=== PATIENT | male | born 1955 | race Caucasian/White ===

== ENCOUNTER 2020-10-30 18:53 | Emergency (ER) | payer MEDICARE ==
[2020-10-30 19:34] VITALS: TEMP 98.1
[2020-10-30 20:44] LABS: Basophils # (A) 0.1 k/uL (0-0.2); Basophils % (A) 1 %; Eosinophils # (A) 0.1 k/uL (0-0.7); Eosinophils % (A) 2 %; HGB 14.4 gm/dL (13.0-17.5); Lymphocytes # (A) 1.9 k/uL (1.0-4.8); Lymphocytes % (A) 27 %; MCH 29.5 pg (25.0-35.0); MCHC 33.5 g/dL (31.0-37.0); Mean Platelet Volume 6.1; Monocytes # (A) 0.3 k/uL (0-1.0); Monocytes % (A) 4 %; Neutrophils # (A) 4.4 k/uL (1.3-7.7); Neutrophils % (A) 64 %; Platelet Count 399 k/uL (150-450); RBC 4.89 m/uL (4.30-5.90); RDW 13.8 % (11.5-15.5); WBC 6.8 k/uL (3.8-10.6)
[2020-10-30 20:54] LABS: INR 0.9 (<1.2); Partial Thromboplastin Time 21.4 sec (22.0-30.0); Prothrombin Time 9.6 sec (9.0-12.0)
--- NOTE | 2020-10-30 21:00 | CT ---
EXAMINATION TYPE: CT brain wo con DATE OF EXAM: 10/30/2020 COMPARISON: None HISTORY: weakness, hx of cva CT DLP: 1080.4 mGycm Automated exposure control for dose reduction was used. There is cerebral atrophy. There is no mass effect nor midline shift. There is no sign of intracrania l hemorrhage. Calvarium is intact there is normal aeration of the mastoid sinuses. IMPRESSION: Cerebral atrophy. No acute intracranial abnormality
[2020-10-30] MEDS: SODIUM CHLORIDE 0.9% 1,000 ML IV STA (21:03)
[2020-10-30 21:05] LABS: ALT 31 U/L (4-49); AST 49 U/L (17-59); African American GFR (CKD) >90 (>60 ml/min/1.73 sqM); Albumin 4.6 g/dL (3.5-5.0); Alkaline Phosphatase 58 U/L (38-126); Anion Gap 11 mmol/L; Blood Urea Nitrogen 15 mg/dL (9-20); Calcium 9.4 mg/dL (8.4-10.2); Carbon Dioxide 24 mmol/L (22-30); Chloride 105 mmol/L (98-107); Glucose 114 mg/dL (74-99); Non-African American GFR(CKD) >90 (>60 ml/min/1.73 sqM); Sodium 140 mmol/L (137-145); Total Bilirubin 0.7 mg/dL (0.2-1.3); Total Protein 7.4 g/dL (6.3-8.2)
[2020-10-30 21:12] LABS: Potassium 5.2 mmol/L (3.5-5.1)
--- NOTE | 2020-10-30 21:17 | ED ---
General Adult HPI - General Chief complaint: Fall Stated complaint: fall Time Seen by Provider: 10/30/20 19:43 Source: patient Mode of arrival: ambulatory Limitations: no limitations - History of Present Illness Initial comments: 65 year-old male patient presents to the emergency department after having a fall. Patient states that he had a "mini stroke" in the past and feels like he is having one again. Patient states that he went to the bar, drank a pitcher of beer, and walked home. States on the walk home he started to feel weak and like he was going to fall. States he felt dizzy, but there was no spinning sensation. States he forced himself to continue the walk, but about a half a block from his house he could not control the falling sensation and fell forward. States that he crawled the rest of the way to the porch and asked for help from his neighbor. States he was able to ask for help and told the person to call 911. Patient denies hitting his head or losing consciousness. Denies any focal numbness or weakness. Denies any visual changes. Denies chest pain, shortness of breath, nausea, or vomiting. States with the previous TIA he was "paralyzed" for about 30-40 minutes. Patient denies any recent rash, fever, chills, cough, shortness of breath, chest pain, abdominal pain, nausea, vomiting, diarrhea, constipation, back pain, hematuria, dysuria, urinary urgency, urinary frequency, or any other complaints. Did have some scratches on his knees and hands. Tetanus is not up to date. - Related Data Home Medications Medication Instructions Recorded Confirmed Aspirin EC [Ecotrin Low Dose] 162 mg PO DAILY PRN 10/30/20 10/30/20 Metoprolol Succinate [Toprol XL] 25 mg PO DAILY 10/30/20 10/30/20 Rosuvastatin [Crestor] 20 mg PO HS 10/30/20 10/30/20 traZODone HCL [Desyrel] 50 mg PO HS PRN 10/30/20 10/30/20 Allergies Allergy/AdvReac Type Severity Reaction Status Date / Time cyclobenzaprine Allergy Confusion Verified 10/30/20 21:23 [From Flexeril] Review of Systems ROS Statement: Those systems with pertinent positive or pertinent negative responses have been documented in the HPI. ROS Other: All systems not noted in ROS Statement are negative. Past Medical History Past Medical History: Hypertension History of Any Multi-Drug Resistant Organisms: None Reported Additional Past Surgical History / Comment(s): sinus Past Psychological History: No Psychological Hx Reported Smoking Status: Former smoker Past Alcohol Use History: Occasional Past Drug Use History: Marijuana General Exam Limitations: no limitations General appearance: alert, in no apparent distress, appears intoxicated, other (This is a well-developed, well-nourished adult male patient in no acute distress. Vital signs upon presentation temperature 98.1F, pulse 119, respirations 20, blood pressure 123/83, pulse ox 94% on room air.) Eye exam: Present: normal appearance, PERRL, EOMI. Absent: scleral icterus, conjunctival injection, nystagmus, periorbital swelling ENT exam: Present: normal exam, normal oropharynx, mucous membranes moist Respiratory exam: Present: normal lung sounds bilaterally. Absent: respiratory distress, wheezes, rales, rhonchi, stridor Cardiovascular Exam: Present: normal rhythm, tachycardia, normal heart sounds. Absent: systolic murmur, diastolic murmur, rubs, gallop, clicks GI/Abdominal exam: Present: soft, normal bowel sounds. Absent: distended, tenderness, guarding, rebound, rigid Extremities exam: Present: full ROM, normal capillary refill, other (Abrasions noted to the left anterior knee. Skin is otherwise pink, warm, dry. Cap refill less than 3 seconds. Pedal and posttibial pulses 2+. Abrasions noted to the palmar surface of the left hand, radial pulses 2+. Skin is pink, warm, dry.). Absent: tenderness, pedal edema, joint swelling, calf tenderness Neurological exam: Present: alert, oriented X3, CN II-XII intact Expanded Speech: Present: fluid speech Cranial nerves: EOM's Intact: Normal, Tongue Deviation: Normal, Nystagmus: Normal Cerebellar function: Finger to Nose: Normal Motor strength exam: RUE: 5, LUE: 5, RLE: 5, LLE: 5 Eye Response: (4) open spontaneously Motor Response: (6) obeys commands Verbal Response: (5) oriented [place] Total: 15 Psychiatric exam: Present: normal affect, normal mood Skin exam: Present: warm, dry, intact, normal color. Absent: rash Course Vital Signs 10/30/20 10/30/20 19:30 22:46 Temperature 98.1 F Pulse Rate 119 H 77 Respiratory 20 16 Rate Blood Pressure 123/83 120/79 O2 Sat by Pulse 94 L 97 Oximetry EKG Findings - EKG Comments: EKG Findings:: EKG obtained at 2100 shows normal sinus rhythm with a rate of 100, DE interval 178, QR rastafarian 76, QT 358, QTC 461. No evidence of ST elevation or depression. Medical Decision Making - Medical Decision Making 65-year-old male patient presents to the emergency department today for evalu ation after experiencing a fall. Patient was concerned he may be having a "mini stroke". Physical examination was unremarkable. He had no neurologic deficits answering all questions appropriately. He did seem to be intoxicated. Labs reviewed and are unremarkable, alcohol was 264. EKG was unremarkable. CT brain was negative. I did discuss findings and results with the patient. As well as symptoms are more related to alcohol intoxication rather than any neurologic event. He does have an MRI coming up this week. He is instructed to follow-up with his primary care physician for recheck in 1-2 days. Patient is given cab ride to his home. His is present there. Return parameters were discussed in detail. He verbalizes understanding and agrees with this plan. My attending is Dr. Briggs. - Lab Data Result diagrams: 10/30/20 20:36 10/30/20 20:36 Lab Results 10/30/20 10/30/20 10/30/20 Range/Units 20:36 20:36 20:36 WBC 6.8 (3.8-10.6) k/uL RBC 4.89 (4.30-5.90) m/uL Hgb 14.4 (13.0-17.5) gm/dL Hct 43.0 (39.0-53.0) % MCV 88.0 (80.0-100.0) fL MCH 29.5 (25.0-35.0) pg MCHC 33.5 (31.0-37.0) g/dL RDW 13.8 (11.5-15.5) % Plt Count 399 (150-450) k/uL MPV 6.1 Neutrophils % 64 % Lymphocytes % 27 % Monocytes % 4 % Eosinophils % 2 % Basophils % 1 % Neutrophils # 4.4 (1.3-7.7) k/uL Lymphocytes # 1.9 (1.0-4.8) k/uL Monocytes # 0.3 (0-1.0) k/uL Eosinophils # 0.1 (0-0.7) k/uL Basophils # 0.1 (0-0.2) k/uL PT 9.6 (9.0-12.0) sec INR 0.9 (<1.2) APTT 21.4 L (22.0-30.0) sec Sodium 140 (137-145) mmol/L Potassium 5.2 H (3.5-5.1) mmol/L Chloride 105 (98-107) mmol/L Carbon Dioxide 24 (22-30) mmol/L Anion Gap 11 mmol/L BUN 15 (9-20) mg/dL Creatinine 0.57 L (0.66-1.25) mg/dL Est GFR (CKD-EPI)AfAm >90 (>60 ml/min/1.73 sqM) Est GFR (CKD-EPI)NonAf >90 (>60 ml/min/1.73 sqM) Glucose 114 H (74-99) mg/dL Calcium 9.4 (8.4-10.2) mg/dL Total Bilirubin 0.7 (0.2-1.3) mg/dL AST 49 (17-59) U/L ALT 31 (4-49) U/L Alkaline Phosphatase 58 (38-126) U/L Troponin I (0.000-0.034) ng/mL Total Protein 7.4 (6.3-8.2) g/dL Albumin 4.6 (3.5-5.0) g/dL Serum Alcohol mg/dL 10/30/20 10/30/20 Range/Units 20:36 20:40 WBC (3.8-10.6) k/uL RBC (4.30-5.90) m/uL Hgb (13.0-17.5) gm/dL Hct (39.0-53.0) % MCV (80.0-100.0) fL MCH (25.0-35.0) pg MCHC (31.0-37.0) g/dL RDW (11.5-15.5) % Plt Count (150-450) k/uL MPV Neutrophils % % Lymphocytes % % Monocytes % % Eosinophils % % Basophils % % Neutrophils # (1.3-7.7) k/uL Lymphocytes # (1.0-4.8) k/uL Monocytes # (0-1.0) k/uL Eosinophils # (0-0.7) k/uL Basophils # (0-0.2) k/uL PT (9.0-12.0) sec INR (<1.2) APTT (22.0-30.0) sec Sodium (137-145) mmol/L Potassium (3.5-5.1) mmol/L Chloride (98-107) mmol/L Carbon Dioxide (22-30) mmol/L Anion Gap mmol/L BUN (9-20) mg/dL Creatinine (0.66-1.25) mg/dL Est GFR (CKD-EPI)AfAm (>60 ml/min/1.73 sqM) Est GFR (CKD-EPI)NonAf (>60 ml/min/1.73 sqM) Glucose (74-99) mg/dL Calcium (8.4-10.2) mg/dL Total Bilirubin (0.2-1.3) mg/dL AST (17-59) U/L ALT (4-49) U/L Alkaline Phosphatase (38-126) U/L Troponin I <0.012 (0.000-0.034) ng/mL Total Protein (6.3-8.2) g/dL Albumin (3.5-5.0) g/dL Serum Alcohol 264 H* mg/dL - Radiology Data Radiology results: report reviewed, image reviewed CT brain without contrast was obtained. Report reviewed in its entirety. Impression by Dr. Jules shows cerebral atrophy. No acute intracranial abnormality. Disposition Clinical Impression: Fall, Dizziness, Alcohol intoxication Disposition: HOME SELF-CARE Condition: Good Instructions (If sedation given, give patient instructions): Alcohol Intoxication (ED), Dizziness (ED), Fall Prevention (ED) Additional Instructions: Follow-up with your primary care physician for recheck in 1-2 days. Continue with plan for MRI as you have scheduled. Return to the emergency department immediately for any new, worsening, or concerning symptoms. Is patient prescribed a controlled substance at d/c from ED?: No Referrals: None,Stated [Primary Care Provider] - 1-2 days Time of Disposition: 22:42
[2020-10-30] MEDS: DIPH,PERTUS(ACELL)TETVAC-LF 0.5 ML VIAL IM ONE (21:31)
[2020-10-30 23:02] VITALS: BP 120/79; PULSE 77; RESP 16
== END 2020-10-30 22:47 | disposition home or self-care (01) ==
LOC: EC 18:53
DX: S80.212A Abrasion, left knee, initial encounter (principal); S60.512A Abrasion of left hand, initial encounter; F10.129 Alcohol abuse with intoxication, unspecified; I10 Essential (primary) hypertension; F12.90 Cannabis use, unspecified, uncomplicated; Z86.73 Personal history of transient ischemic attack (TIA), and cerebral infarction without residual deficits; Z87.891 Personal history of nicotine dependence; W17.89XA Other fall from one level to another, initial encounter; Y93.01 Activity, walking, marching and hiking; Z23 Encounter for immunization
CPT/HCPCS: 36415; 93005; 80053; 84484; 85025; 85610; 85730; 70450; 90715; 99285; 90471; G0480; 80320

== ENCOUNTER → 2020-11-16 | Outpatient (CLI) | payer MEDICARE ==
--- NOTE | 2020-11-17 03:24 | MR ---
EXAMINATION TYPE: MR brain wo/w con DATE OF EXAM: 11/16/2020 COMPARISON: None HISTORY: Possible stroke, dizziness. CONTRAST: Standard multiplanar, multisequence MRI departmental protocol utilizing 7.5 mL intravenous Gadavist g adolinium contrast. Ventricles have fairly normal size. There is cerebral mild atrophy appropriate for age. There is no m ass effect nor midline shift. There is no sign of intracranial hemorrhage. Diffusion images show no e vidence of an acute infarct. On the T2 and FLAIR images there is some increased signal adjacent to th e lateral ventricles that measures up to almost 1 cm in thickness. This is seen mostly around the fro ntal horns. There are 4 mm scattered foci of increased signal in the internal capsule bilaterally. Total number of foci approximate 10. The contrast images show no pathologic enhancement. There is normal enhancement of the venous sinuses . The sella turcica is normal. There is no evidence of orbital mass. Corpus callosum is intact. The cerebellum is intact. There are 3 mm scattered foci of increased signal in the brainstem at the l evel of the douglas bilaterally. IMPRESSION: Mild age-related cerebral atrophy. No evidence of a cortical infarct. White matter signal changes as above are nonspecific and I would consider both demyelinating disease and chronic small vessel ischemia. White matter lesions are not peripheral that favors demyelinating disease.
--- NOTE | 2020-11-17 08:42 | XR ---
EXAMINATION TYPE: XR chest 2V DATE OF EXAM: 11/16/2020 COMPARISON: NONE HISTORY: Lung nodule TECHNIQUE: Frontal and lateral views of the chest are obtained. FINDINGS: Nodular density superimposed over the posterior left ninth rib. There is no evident pneumo thorax or pleural effusion. Cardiac mediastinal silhouette is within normal limits. There is a spinal curvature. Aorta is dense. IMPRESSION: Nodular density may be associated with the rib but is indeterminate. No comparison with prior exam available at the time of interpretation. Chest CT could be performed for better evaluation .
== END | disposition home or self-care (01) ==
LOC: RADMRIMAIN 17:28 → EDUNIT# 18:15
PROVIDERS: ATTEND Family Medicine
DX: G31.9 Degenerative disease of nervous system, unspecified (principal); R90.82 White matter disease, unspecified; R91.1 Solitary pulmonary nodule
CPT/HCPCS: 71046; 70553; A9585

== ENCOUNTER → 2020-12-07 | Outpatient (CLI) | payer MEDICARE ==
[2020-12-07 15:52] LABS: African American GFR (CKD) >90 (>60 ml/min/1.73 sqM); Blood Urea Nitrogen 16 mg/dL (9-20); Non-African American GFR(CKD) >90 (>60 ml/min/1.73 sqM)
--- NOTE | 2020-12-07 16:15 | CT ---
EXAMINATION TYPE: CT chest w con DATE OF EXAM: 12/07/2020 COMPARISON: None HISTORY: pulmonary nodules CT DLP: 306 mGycm Automated exposure control for dose reduction was used. CONTRAST: CT scan of the chest is performed with IV Contrast, patient injected with 100 mL of Isovue 300. FINDINGS: LUNGS: 7.4 mm pulmonary nodule left lower lobe adjacent to the fissure. Small adjacent satellite nodu le is noted as well. No additional nodules noted. No evidence of pulmonary mass. No infiltrate or ple ural effusion. MEDIASTINUM: There are no greater than 1 cm hilar or mediastinal lymph nodes. No pericardial effusi on is seen. Thoracic aorta is of normal caliber. The heart is not enlarged. UPPER ABDOMEN: Hepatic steatosis with hepatomegaly. OTHER: No additional significant abnormality is seen. IMPRESSION: 1. Nonspecific pulmonary nodules left lower lobe. Follow-up study in 3-6 months is advised. No additi onal nodules seen at this time.
== END | disposition home or self-care (01) ==
LOC: RADCTMAIN 15:21
PROVIDERS: ATTEND Family Medicine
DX: R91.8 Other nonspecific abnormal finding of lung field (principal)
CPT/HCPCS: 82565; 84520; 71260; 36415; Q9967

== ENCOUNTER 2021-01-07 11:06 | Day surgery (SDC) | payer MEDICARE ==
[2021-01-05 16:09] VITALS: BMI 25.1
[~2021-01-07 11:06] MED LIST: LACTATED RINGERS 1,000 ML IV SCH
[2021-01-07 11:31] VITALS: TEMP 98.9
--- NOTE | 2021-01-07 12:09 | P.PCN ---
Date of Procedure: 01/07/21 Procedure(s) Performed: Preoperative diagnosis: Demyelinating disease Post operative diagnoses: Demyelinating disease Procedure= lumbar puncture Anesthesia local infiltration with lidocaine 1% 2 mL only . Condition: stable Complication: none. Description of the procedure procedure risk and benefits discussed with the patient and family, consent signed. Patient and the procedure area placed in sitting position, back prepped with chlorhexidine 3 times been local infiltration of the skin and subcutaneous tissue with lidocaine 1% 4 mL for skin and subcu interstitial frustrations at L4 5 levels then 22-gauge Quincke-type needle advanced slowly at L4- 5 interlaminar space there was positive cerebrospinal fluid which was clear, no heme, no paresthesia ,total of 8 ML of clear cerebrospinal fluid collected in 4 different tubes 2-2-1/2 mL in each, then the needle removed and a Band-Aid applied and patient tolerated the procedure well without any complications.
[2021-01-07] MEDS ORDERED: IV FLUID CONTINUATION 1,000 ML IV ONE ×2 (12:12)
[2021-01-07 13:05] VITALS: BP 123/84; PULSE 92; RESP 16
[2021-01-07 13:05] LABS: Glucose,CSF 65 mg/dL (40-70); Total Protein,CSF 131 mg/dL (12-60)
[2021-01-07 13:33] LABS: Appearance,CSF Clear; CSF Tube Number 3; Nucleated Cells, CSF 1 u/L (0-5); Red Blood Cell,CSF 0 u/L (0-10)
[2021-01-07 22:20] LABS: Anti-Smith Ab Interp NEGATIVE (NEGATIVE); DNA Double-Stranded NEGATIVE (NEGATIVE)
[2021-01-08 10:46] LABS: VDRL, Qualitative CSF Nonreactive (Nonreactive)
[2021-01-11 13:02] LABS: IgG Synthesis Rate 0.04 mg/day (0.00 - 3.00); IgG/Albumin Index (CSF) 0.49 (0.00 - 0.77)
== END 2021-01-07 12:45 | disposition home or self-care (01) ==
LOC: ORPAIN 11:06
PROVIDERS: ATTEND Specialist
DX: G37.9 Demyelinating disease of central nervous system, unspecified (principal)
CPT/HCPCS: 62270; 82040; 82042; 82784; 82945; 83873; 83916; 84157; 84436; 84443; 84450; 84460; 86038; 86039; 86225; 86235; 86431; 86592; 86618; 87801; 88108; 89050

== ENCOUNTER → 2021-01-15 | Outpatient (CLI) | payer MEDICARE ==
--- NOTE | 2021-01-15 13:40 | PE ---
EXAMINATION TYPE: PET CT fusion skull to thigh DATE OF EXAM: 01/15/2021 COMPARISON: Prior chest CT December 07, 2020 HISTORY: Solitary pulmonary nodule, abnormal CT TECHNIQUE: Following the intravenous administration of 10.17 mCi of F-18 FDG, whole body images are performed from the skull base to the midthigh. Images are reviewed on the computer in the coronal, a xial, and sagittal planes. Reconstructed rotating images are created on independent workstation and reviewed on the computer. A localization and attenuation correction CT is performed in conjunction with the PET scan. Blood glucose level equals 112 SCAN: Initial Scan FINDINGS: SKULL BASE AND NECK: No suspicious hypermetabolic uptake CHEST, MEDIASTINUM, AND HILAR REGION: Persistent 10 x 5 mm left lower lobe nodule along some linear s carring axial image 112 is ametabolic. A few smaller nodules for example along the fissure axial imag e 99 measure under 5 mm in size are a metabolic. Mild uptake at level of the left sternoclavicular jillian int is presumed postinflammatory near axial image 76. No areas of suspicious hypermetabolic uptake. ABDOMEN AND PELVIS: Normal excretion. No areas of abnormal hypermetabolic uptake noted. No adrenal m asses are present. OSSEOUS STRUCTURES: No additional areas of abnormal hypermetabolic uptake. OTHER CT: Small degree of subareolar flame-shaped gynecomastia redemonstrated. There is fatty infiltration of liver redemonstrated. Distal colonic diverticulosis is noted. Central calcifications in prostate gland. IMPRESSION: No suspicious hypermetabolic uptake to suggest malignancy. Advise follow-up CT in 6-12 mo nths time to reassess subcentimeter pulmonary nodules.
== END | disposition home or self-care (01) ==
LOC: RADPETMAIN 11:16
PROVIDERS: ATTEND Family Medicine
DX: R91.8 Other nonspecific abnormal finding of lung field (principal); K76.0 Fatty (change of) liver, not elsewhere classified; K57.30 Diverticulosis of large intestine without perforation or abscess without bleeding
CPT/HCPCS: 78815; A9552

== ENCOUNTER → 2023-06-08 | Outpatient (CLI) | payer MEDICARE ==
--- NOTE | 2023-06-15 09:23 | CT ---
EXAMINATION TYPE: CT chest wo con CT DLP: 337.20 mGycm, Automated exposure control for dose reduction was used. DATE OF EXAM: 06/08/2023 1:14 PM COMPARISON: PET/CT 01/15/2021, CT chest 12/07/2020 . CLINICAL INDICATION:Male, 67 years old with history of R91.1 SOLITARY PULMONARY NODULE; PHH, F/U JOE TARY PULMONARY NODULE TECHNIQUE: Multiple axial images were obtained through the chest. Sagittal and coronal reformats were created for review. Contrast used: mL of (None if empty) Oral contrast used: (None if empty) FINDINGS: Exam is limited by lack of contrast, specifically evaluating the vasculature and for adenopathy. LUNGS/ PLEURA: A 7.7 mm solid nodule in the left lower lobe image 42 series 4, unchanged from prior C T. Other smaller nodules also remain unchanged. Similar appearance of tree-in-bud opacities in the ri ght lower lobe, likely sequela of previous infectious/inflammatory process. There is no new or enlarg ing nodule or mass. Mild biapical emphysematous changes and scarring. No acute infiltrate or consolidation. No pleural ef fusion or pneumothorax. AIRWAY: Central airways are patent. LOWER NECK: No significant findings. MEDIASTINUM: No gross evidence of mediastinal adenopathy. Nonenlarged lymph nodes remain stable. No hilar findings to suggest significant adenopathy in the limits of unenhanced exam. HEART: Heart size upper normal. Minimal coronary arterial calcification.. No appreciable pericardial effusion. VASCULATURE: Mild atherosclerotic calcifications of the aorta, mostly along the arch and tiny calcif ications of the aortic valve. Ascending aorta is 3.2 CM, descending is 2.5 CM. Aorta is considered w ithin normal limits for size. Pulmonary trunk measures 2.2 CM. Pulmonary trunk is normal in size. Vessels otherwise not further ass essed without contrast. SOFT TISSUES/LYMPH NODES: Mild bilateral gynecomastia. No evidence for chest wall mass or axillary ly mphadenopathy. UPPER ABDOMEN: No significant findings. Nonenlarged lymph nodes. No mass of the visualized adrenals. MUSCULOSKELETAL: No acute osseous abnormalities. Mild to moderate disc degeneration changes are prese nt throughout the thoracolumbar spine. IMPRESSION: 1. Bilateral subcentimeter pulmonary nodules, stable since 12/07/2020 and considered benign. 2. No new or enlarging nodule, mass, or adenopathy in the chest.
== END | disposition home or self-care (01) ==
LOC: RADCTMAIN 12:51
PROVIDERS: ATTEND Family Medicine
DX: R91.8 Other nonspecific abnormal finding of lung field (principal)
CPT/HCPCS: 71250

== ENCOUNTER → 2024-12-23 | Outpatient (CLI) | payer MEDICARE ==
--- NOTE | 2024-12-23 14:44 | XR ---
EXAMINATION TYPE: XR chest 2V DATE OF EXAM: 12/23/2024 2:40 PM COMPARISON: Chest radiographs from 11/16/2020, CT chest 06/08/2023 TECHNIQUE: XR chest 2V Frontal and lateral views of the chest. CLINICAL INDICATION:Male, 69 years old with history of J44.9 COPD; FINDINGS: Lungs/Pleura: There is no evidence of pleural effusion, focal consolidation, or pneumothorax. Pulmonary vascularity: Unremarkable. Heart/mediastinum: Cardiomediastinal silhouette is unremarkable. Musculoskeletal: No acute osseous pathology. IMPRESSION: No acute cardiopulmonary disease/process. [facility], , 12/23/2024 2:42 PM
== END | disposition home or self-care (01) ==
LOC: RADXRMAIN 14:22
PROVIDERS: ATTEND Family Medicine
DX: J44.9 Chronic obstructive pulmonary disease, unspecified (principal)
CPT/HCPCS: 71046